=== PATIENT | male | born 1970 | race African-American/Black ===

== ENCOUNTER 2017-10-08 13:38 | Emergency (ER) | payer OTHER ==
[2017-10-08] MEDS ORDERED: BUFFERED LIDOCAINE 10 ML SYRINGE SUBQ STA (14:25)
[2017-10-08] MEDS ORDERED: TETANUS/DIPHTHERIA/PERTUSSIS 0.5 ML SYRINGE IM ONE (14:25)
--- NOTE | 2017-10-08 14:25 | ED Physician Documentation ---
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 He is not up-to-date on tetanus. He walked into a step and suffered a small laceration on the anterior left frederick. No other injuries. He is able to walk and bear weight normally.) Review of Systems Constitutional: denies: Fever, Chills Respiratory: denies: Dyspnea, Cough GI: denies: Abdominal Pain, Nausea PD PAST MEDICAL HISTORY - Past Surgical History Past Surgical History: No - Present Medications Home Medications: Ambulatory Orders Medication Instructions Recorded Confirmed No Known Home Medications [No 10/08/17 10/08/17 Known Home Medications] - Allergies Allergies/Adverse Reactions: Allergies Allergy/AdvReac Type Severity Reaction Status Date / Time No Known Drug Allergies Allergy Verified 10/02/15 11:58 - Social History Does the pt smoke?: No Smoking Status: Never smoker PD ED PE NORMAL - Vitals Vital signs reviewed: Yes - General General: Alert and oriented X 3, No acute distress - Extremities Extremities: Other (On the anterior left frederick there is a 1.5 cm crescent-shaped shallow laceration without underlying bony tenderness or deformity.) - Neuro Neuro: Alert and oriented X 3, Normal speech Results - Vitals Vitals: Vital Signs - 24 hr 10/08/17 13:59 Temperature 36.8 C Heart Rate 70 Respiratory 18 Rate Blood Pressure 164/104 H O2 Saturation 96 Oxygen O2 Source Room air Procedures - Laceration (location) L frederick Length in cm: 1.5 Wound type: Curved Anesthesia: Lidocaine 1% with epi Wound Preparation: Betadine, Irrigated copiously NS Skin layer closure: Nylon, Interrupted, Size #-0 - enter number (4-0), Sutures - enter # (3) Other: Patient tolerated well, No complications, Neurovascular intact, Tetanus booster given Complexity: Simple Departure - Departure Disposition: 01 Home, Self Care Clinical Impression: Laceration of left leg Qualifiers: Encounter type: initial encounter Qualified Code(s): S81.812A - Laceration without foreign body, left lower leg, initial encounter Condition: Good Record reviewed to determine appropriate education?: Yes Instructions: ED Laceration Ext Sutr Stap Tape Comments: Come back for any signs of infection which would include: Redness, swelling, drainage, increased pain, or fevers. Follow-up with your physician in 14 days for suture removal. Your blood pressure was elevated today on check into the emergency department. This does not mean that you have hypertension, it is a common phenomenon to come to the emergency department and have elevated blood pressure. I recommend that you see your primary care physician within the week to have it rechecked when you are feeling better.
[2017-10-08 15:02] VITALS: BP 149/94
== END 2017-10-08 14:59 | disposition home or self-care (01) ==
LOC: ED 13:38
DX: S81.812A Laceration without foreign body, left lower leg, initial encounter (principal); W22.8XXA Striking against or struck by other objects, initial encounter; Y92.139 Unspecified place military base as the place of occurrence of the external cause; Y99.0 Civilian activity done for income or pay; R03.0 Elevated blood-pressure reading, without diagnosis of hypertension; Z23 Encounter for immunization
CPT/HCPCS: 1040M; 12001; 90471; 90715; 99283

== ENCOUNTER 2018-12-06 18:06 | Emergency (ER) | payer OTHER ==
[2018-12-06 18:13] VITALS: BP 164/86
[2018-12-06] MEDS ORDERED: cephALEXin 250 MG CAPSULE PO STA (18:25)
--- NOTE | 2018-12-06 18:28 | ED Physician Documentation ---
PD HPI LOWER EXT INJURY - Stated complaint Stated Complaint: LT LEG PX - Chief complaint Chief Complaint: Laceration - History obtained from History obtained from: Patient - History of Present Illness PD HPI LOW EXT INJURY LOCATION: Left (He dropped a grill on his left frederick last night about 8 PM. This was about 22 hours ago and has a cut there. He is up-to-date on tetanus.) Review of Systems Constitutional: reports: Reviewed and negative Throat: reports: Reviewed and negative Cardiac: reports: Reviewed and negative PD PAST MEDICAL HISTORY - Past Surgical History Past Surgical History: No - Present Medications Home Medications: Ambulatory Orders Medication Instructions Recorded Confirmed Bacitracin Zinc Oint 1 applic TOP BID #1 tube 12/06/18 Cephalexin [Keflex] 500 mg PO Q6H #28 capsule 12/06/18 - Allergies Allergies/Adverse Reactions: Allergies Allergy/AdvReac Type Severity Reaction Status Date / Time No Known Drug Allergies Allergy Verified 12/06/18 18:13 - Social History Does the pt smoke?: No Smoking Status: Never smoker PD ED PE NORMAL - Vitals Vital signs reviewed: Yes - General General: Alert and oriented X 3, No acute distress - Extremities Extremities: Other (Over the anterior mid left frederick there is a curvilinear 2 cm laceration in the subcutaneous fat) - Neuro Neuro: Alert and oriented X 3, Normal speech Results - Vitals Vitals: Vital Signs - 24 hr 12/06/18 18:08 Temperature 36.7 C Heart Rate 66 Respiratory 14 Rate Blood Pressure 164/86 H O2 Saturation 96 Oxygen O2 Source Room air PD MEDICAL DECISION MAKING - ED course ED course: 48-year-old gentleman who is up-to-date on tetanus presents with a 22-hour old wound to the left frederick which is not a very vascular area. I discussed the options of immediate primary closure with increased risk of infection versus delayed primary closure and he opted for the latter. His wound was irrigated and he is placed on Keflex. Departure - Departure Disposition: 01 Home, Self Care Clinical Impression: Laceration Condition: Good Record reviewed to determine appropriate education?: Yes Instructions: ED Laceration Old Not Sutr Prescriptions: Bacitracin Zinc Oint 1 applic TOP BID #1 tube Cephalexin [Keflex] 500 mg PO Q6H #28 capsule Comments: Wash with soap and water once daily, keep it covered with a nonstick dressing and bacitracin ointment which is prescribed. If you think it needs stitching in 72 hours please return at that time for reevaluation. If you do not think it needs stitching at that point you can continue the wound care as above. Return anytime for signs or symptoms of infection including increased pain, drainage, fever, spreading redness
== END 2018-12-06 18:46 | disposition home or self-care (01) ==
LOC: ED 18:06
DX: S81.812A Laceration without foreign body, left lower leg, initial encounter (principal); W20.8XXA Other cause of strike by thrown, projected or falling object, initial encounter
CPT/HCPCS: 99283; A9270

== ENCOUNTER 2020-12-22 23:27 | Emergency (ER) | payer OTHER ==
[2020-12-23 01:15] LABS: BASOPHILS # (AUTO) 0.1 10^3/uL (0.0-0.1); EOSINOPHILS # (AUTO) 0.2 10^3/uL (0.0-0.7); EOSINOPHILS % (AUTO) 2.9 %; HCT - HEMATOCRIT 42.1 % (42.0-52.0); HGB - HEMOGLOBIN 14.3 g/dL (14.0-18.0); LYMPHOCYTES % (AUTO) 41.3 %; MEAN CORPUSCULAR HEMOGLOBIN 31.2 pg (27.0-31.0); MEAN CORPUSCULAR VOLUME 91.7 fL (80.0-94.0); MEAN PLATELET VOLUME 10.3 fL (7.4-11.4); MONOCYTES # (AUTO) 0.5 10^3/uL (0.0-1.0); MONOCYTES % (AUTO) 6.1 %; NEUTROPHILS # (AUTO) 3.6 10^3/uL (1.5-6.6); NEUTROPHILS % (AUTO) 48.4 %; PLT - PLATELET COUNT 220 10^3/uL (130-450); RED BLOOD COUNT 4.59 10^6/uL (4.70-6.10); RED CELL DISTRIBUTION WIDTH 13.5 % (12.0-15.0); WHITE BLOOD COUNT 7.3 x10^3/uL (4.8-10.8)
[2020-12-23 01:25] LABS: ALBUMIN 4.4 g/dL (3.2-5.5); ALBUMIN/GLOBULIN RATIO 1.5 (1.0-2.2); BILIRUBIN,TOTAL 0.6 mg/dL (0.2-1.0); CALCIUM 9.3 mg/dL (8.5-10.3); CREATININE 1.2 mg/dL (0.6-1.2); POTASSIUM 4.1 mmol/L (3.5-5.0); TOTAL PROTEIN 7.4 g/dL (6.7-8.2)
--- NOTE | 2020-12-23 01:47 | ED Physician Documentation ---
PD HPI CHEST PAIN - Stated complaint Stated Complaint: CP - Chief complaint Chief Complaint: Cardiac - History obtained from History obtained from: Patient - History of Present Illness Timing - onset: Enter time (22:00), Today Timing - onset during: Rest Timing - duration: Minutes Timing - details: Gradual onset Pain level max: 3 Pain level now: 0 Quality: Pressure, Tightness Location: Substernal Radiation: Other (does not radiate) Improved by: Nothing (resolved spontaneously without apparent alleviating factors) Worsened by: Other (no exacerbating factors) Associated symptoms: No: Shortness of air, Diaphoresis, Nausea, Vomiting, Feeling faint / dizzy, General Weakness, Palpitations Similar symptoms before: Has not had sx before Recently seen: Not recently seen - Additional information Additional information: patient had completed exercising tonight at approximately 10 pm and while he was at rest "cooling down" (per patient), he developed midline chest pressure and tightness. This lasted several minutes but resolved by the time of this evaluation. Denies h/o similar symptoms. Review of Systems Constitutional: denies: Sweats Cardiac: reports: Chest pain / pressure. denies: Palpitations, Pedal edema, Calf pain Respiratory: reports: Reviewed and negative GI: reports: Reviewed and negative Musculoskeletal: denies: Extremity swelling PD PAST MEDICAL HISTORY - Past Medical History Past Medical History: Yes Cardiovascular: Hypertension GI: GERD - Past Surgical History Past Surgical History: No - Present Medications Home Medications: Ambulatory Orders Medication Instructions Recorded Confirmed No Known Home Medications 12/23/20 12/23/20 - Allergies Allergies/Adverse Reactions: Allergies Allergy/AdvReac Type Severity Reaction Status Date / Time No Known Drug Allergies Allergy Verified 12/22/20 23:33 - Social History Does the pt smoke?: No Smoking Status: Never smoker Does the pt drink ETOH?: No Does the pt have substance abuse?: No - Immunizations Immunizations are current?: Yes - POLST Patient has POLST: No PD ED PE NORMAL - Vitals Vital signs reviewed: Yes - General General: Alert and oriented X 3, No acute distress, Well developed/nourished - Neck Neck: Supple, no meningeal sign - Cardiac Cardiac: RRR, No murmur, No gallop, No rub - Respiratory Respiratory: No respiratory distress, Clear bilaterally - Abdomen Abdomen: Soft, Non tender - Derm Derm: Normal color, Warm and dry - Extremities Extremities: No edema Results - Vitals Vitals: Oxygen O2 Source Room air - EKG (time done) No standard instances Rate: Rate (enter#) (63) Rhythm: NSR Am[place]: Normal Intervals: Normal OK QRS: Normal Ischemia: Normal ST segments - Labs Labs: Laboratory Tests 12/23/20 12/23/20 12/23/20 01:10 01:10 01:10 WBC 7.3 RBC 4.59 L Hgb 14.3 Hct 42.1 MCV 91.7 MCH 31.2 H MCHC 34.0 RDW 13.5 Plt Count 220 MPV 10.3 Neut # (Auto) 3.6 Lymph # (Auto) 3.0 [place] # (Auto) 0.5 Eos # (Auto) 0.2 Baso # (Auto) 0.1 Absolute Nucleated RBC 0.00 Nucleated RBC % 0.0 Sodium 139 Potassium 4.1 Chloride 104 Carbon Dioxide 26 Anion Gap 9.0 BUN 20 Creatinine 1.2 Estimated GFR (MDRD) 77 L Glucose 110 H Calcium 9.3 Total Bilirubin 0.6 AST 23 ALT 34 Alkaline Phosphatase 60 Troponin I High Sens 6.9 Total Protein 7.4 Albumin 4.4 Globulin 3.0 Albumin/Globulin Ratio 1.5 Lipase 28 - Rads (name of study) chest xray Radiology: Prelim report reviewed, See rad report PD MEDICAL DECISION MAKING - ED course Complexity details: reviewed results, re-evaluated patient, considered differential, d/w patient Departure - Departure Disposition: 01 Home, Self Care Clinical Impression: Chest pain Condition: Good Instructions: ED Chest Pain Atypical Unkn Cause, ED Hypertension Poss Follow-Up: ERICK JUNIOR DO [Primary Care Provider] - (Call when the office next opens to arrange for next available appointment) Discharge Date/Time: 12/23/20 03:10
[2020-12-23 03:11] VITALS: BP 141/80
--- NOTE | 2020-12-23 10:26 | XRAY Report ---
PROCEDURE: Chest 1 View X-Ray INDICATIONS: Chest pain TECHNIQUE: One view of the chest was acquired. COMPARISON: None. FINDINGS: Surgical changes and devices: None. Lungs and pleura: No pleural effusions or pneumothorax. No focal infiltrates are seen. At least on e calcified granuloma can be seen anteriorly and on the left. Mediastinum: Mediastinal contours appear normal. Heart size is normal. Bones and chest wall: No suspicious bony lesions. Age-appropriate degenerative changes are seen. Overlying soft tissues appear unremarkable. IMPRESSION: No acute cardiopulmonary process is seen. Prior granulomatous exposure. Note: No significant discrepancy from the preliminary report. Reviewed by: Freddie To MD on 12/23/2020 9:25 AM MEAGHAN Approved by: Freddie To MD on 12/23/2020 9:25 AM FLFLORENTINO Station ID: [id number]
== END 2020-12-23 03:10 | disposition home or self-care (01) ==
LOC: ED 23:27
DX: R07.89 Other chest pain (principal); I10 Essential (primary) hypertension
CPT/HCPCS: 36415; 80053; 83690; 84484; 85025; 93005; 99284